=== PATIENT | female | born 1970 | race Caucasian/White ===

== ENCOUNTER 2017-01-07 09:57 | Inpatient (IN) | payer OTHER ==
[~2017-01-07] VITALS: Ht 149.9 cm; Wt 61.7 kg
[2017-01-07] VITALS (7 sets, daily range): BP systolic 109–120; BP diastolic 58–69
--- NOTE | 2017-01-07 11:11 | NUR ---
Patient ambulated to bed 04.
--- NOTE | 2017-01-07 11:15 | NUR ---
PATIENT PRESENTS TO ED WITH RECURRING PALPITATIONS X1 MONTH---WITH MINIMAL EXERTION PT BECOMES FATIGUED AT NIGHT CAN HEAR HEARBEAT RIGHT SIDE OF EAR--- HX---DENIES RX---NONE DENIES N/V/D; SKIN IS PINK/WARM/DRY; AAOX4 WITH EVEN AND STEADY GAIT; LUNGS CLEAR BL; HR EVEN AND REGULAR; PT DENIES ANY FEVER, CP, SOB, OR COUGH AT THIS TIME; PATIENT STATES PAIN OF 0/10 AT THIS TIME; VSS; PATIENT POSITIONED FOR COMFORT; HOB ELEVATED; BEDRAILS UP X2; BED DOWN. ER MD MADE AWARE OF PT STATUS.
--- NOTE | 2017-01-07 12:10 | NUR ---
AAO AMBULATES TO THE RESTROOM WITH DAUGHTER
--- NOTE | 2017-01-07 12:16 | NUR ---
1L OF NS 0.9% STARTED W/O 999ML/HR PER DR LACKEY Addendum: 01/07/17 at 1359 by VALORIE AT 1355 1L NS 0.9% DONE MEGA
[2017-01-07 12:23] LABS: INR 1.1 (0.8-1.2); PARTIAL THROMBOPLASTIN TIME 24.9 secs (22-35.6); PROTHROMBIN TIME 10.3 secs (10.8-13.4)
[2017-01-07 13:21] LABS: ANION GAP 13.9 (8-16); CALCIUM 8.4 mg/dL (8.5-10.1); CARBON DIOXIDE 25.8 mmol/L (21-32); CREATININE 0.6 mg/dL (0.6-1.3); POTASSIUM 3.7 mmol/L (3.5-5.1)
[2017-01-07 13:29] LABS: MEAN CORPUSCULAR HEMOGLOBIN 38 pg (27-31); MEAN CORPUSCULAR HGB CONC 34 g/dL (33-37); MEAN CORPUSCULAR VOLUME 111 fL (80-94); RED BLOOD CELL COUNT(AUTO) 1.04 MIL/uL (4.20-5.40); RED CELL DISTRIBUTION WIDTH 16.9 % (11.6-13.7)
--- NOTE | 2017-01-07 13:58 | NUR ---
AAO PT WHEEL CHAIR ASSISTED TO THE RESTROOM
[2017-01-07 14:01] LABS: TOTAL BILIRUBIN 0.4 mg/dL (0.0-1.0); TOTAL PROTEIN, SERUM 8.3 g/dL (6.4-8.2)
[2017-01-07 14:02] LABS: ALBUMIN 3.9 g/dL (3.4-5.0)
[2017-01-07] MEDS ORDERED: NACL 0.9% 1,000 ML IV ONE (14:30)
[2017-01-07 14:49] LABS: HEMATOCRIT 11.5 % (36-48); HEMOGLOBIN 3.9 g/dL (12.0-16.0); PLATELET COUNT (AUTO) 12 K/uL (140-450)
[2017-01-07 14:51] LABS: BAND % (MANUAL) 3 % (0-8); LYMPHOCYTES % (MANUAL) 50 % (20-46); MONOCYTES % (MANUAL) 7 % (5-12); NEUTROPHILS % (MANUAL) 40 (43-65)
[2017-01-07 14:52] LABS: PLATELET ESTIMATE DECREASED
--- NOTE | 2017-01-07 15:03 | NUR ---
Patient will be admitted to care of DR TERAN. Admited to TELE. Will go to room 105B. Belongings list completed. Report to ANA FANG.
[2017-01-07] MEDS ORDERED: ACETAMINOPHEN 325 MG TAB PO PRN (15:05)
[2017-01-07] MEDS ORDERED: ONDANSETRON 4 MG/2 ML VIAL IM/IVP PRN (15:05)
[2017-01-07] MEDS ORDERED: HYDROcodone/APAP 7.5/325 MG 1 TAB PO PRN (15:05)
[2017-01-07] MEDS: NACL 0.9% 1,000 ML IV SCH (15:05)
--- NOTE | 2017-01-07 15:24 | NUR ---
UNABLE TO DO IV INSERTION FOR 20G IV ATTEMPTED BY ANA PRATT
--- NOTE | 2017-01-07 15:30 | NUR ---
PT AWAKE LYING ON A BED ACCOMPANIED BY ER NURSES AND DAUGHTER AAOX4 CYMRAES SPEAKING WITH NO S/S OF RESPIRATORY DISTRESS OR DISCOMFORT, WITH IV ACCESS AT LEFT ARM 22G ON SALINE LOCK PATENT AND INTACT. SKIN IS INTACT. LUNG SOUNDS ARE CLEAR, NO EDEMA NOTED ON BILATERAL UPPER AND LOWER EXTREMITIES. DISCUSSED PLAN OF CARE VIA Kere[employer] DRIVER STARTING GATE ROSSY [id number], PT VERBALIZED UNDERSTANDING. ORIENTED PT TO ENVIRONMENT AND USE OF CALL LIGHT, SAFETY PRECAUTIONS ENFORCED. CALL LIGHT WITHIN REACH, WILL CONTINUE TO MONITOR
--- NOTE | 2017-01-07 15:30 | NUR ---
PT RECEIVED AWAKE LYING ON A BED
--- NOTE | 2017-01-07 15:35 | NUR ---
ANOTHER IV ACCESS STARTED ON RIGHT AC 20G FOR BLOOD TRANSFUSION. PATENT AND INTACT
--- NOTE | 2017-01-07 16:15 | NUR ---
DR RITCHIE AT BEDSIDE
[2017-01-07 16:29] LABS: CHOL/HDL RATIO 5.3 (1-4.5); FREE T4 (FREE THYROXINE) 1.33 ng/dL (0.76-1.46); MAGNESIUM 2.1 mg/dL (1.8-2.4); PHOSPHORUS 4.1 mg/dL (2.5-4.9); THYROID STIMULATING HORMONE 1.99 uIU/mL (0.34-3.76)
--- NOTE | 2017-01-07 16:30 | NUR ---
BLOOD TRANSFUSION STARTED VERIFIED BY ANA ORELLANA
--- NOTE | 2017-01-07 16:30 | NUR ---
DR RITCHIE NOTIFIED OF TEMP 99.7 PRIOR TO BT. WILL CARRY OUT NEW ORDERS
[2017-01-07 17:29] LABS: BILIRUBIN,URINE NEGATIVE (NEGATIVE); BLOOD, URINE NEGATIVE (NEGATIVE); LEUKOCYTE ESTERASE ,URINE NEGATIVE (NEGATIVE); NITRITE, URINE NEGATIVE (NEGATIVE); PH,URINE 6.5 (5.0-9.0); PROTEIN,URINE NEGATIVE (NEGATIVE); UGLUCOSE NEGATIVE (NEGATIVE); UROBILINOGEN,URINE 0.2 EU/dL (0.2 - 1)
[2017-01-07 17:46] LABS: APPEARANCE,URINE CLEAR (CLEAR); COLOR,URINE STRAW (YELLOW)
--- NOTE | 2017-01-07 18:21 | NUR ---
PT AWAKE EATING DINNER WITH GOOD APPETITE, WITH ONGOING BLOOD TRANSFUSION, NO ADVERSE REACTION NOTED. WITH DAUGHTER AT BEDSIDE.
[2017-01-07 18:35] LABS: AMPHETAMINE, URINE NEGATIVE ng/ml (NEG <=1000); BARBITURATE, URINE NEGATIVE ng/ml (NEG <=200); BENZODIAZEPINE, URINE NEGATIVE ng/mL (NEG <=200); CANNABINOID, URINE NEGATIVE ng/mL (NEG <=50); COCAINE, URINE NEGATIVE ng/mL (NEG <=300); OPIATE, URINE NEGATIVE ng/mL (NEG <=2000); PHENCYCLIDINE SCREEN,URINE NEGATIVE ng/mL (NEG <=25)
--- NOTE | 2017-01-07 19:10 | NUR ---
ENDORSED PT TO ANA VALDOVINOS IN STABLE CONDITION FOR CONTINUITY OF CARE
--- NOTE | 2017-01-07 19:16 | NUR ---
RECEIVED REPORT FROM ANA FANG AT BEDSIDE. INITIAL ASSESSMENT COMPLETED. PT AAOX4. PT RECEIVING BLOOD AT THIS TIME. PT HAS IV ON LEFT ARM G 22 AND RIGHT AC 20G INFUSING BLOOD. DAUGHTER AT BEDSIDE. PT HAS SCDS ON. ORIENTED PT TO ROOM AND SURROUNDINGS AND USE OF CALL LIGHT. ORIENTED PT TO ROOM AND SURROUNDINGS AND USE OF CALL LIGHT.
[2017-01-07] MEDS: ACETAMINOPHEN 325 MG TAB PO SCH (19:52)
[2017-01-07] MEDS: FUROSEMIDE 20 MG TAB PO SCH (19:53)
[2017-01-07 20:13] LABS: BACTERIA,URINE None Seen /HPF (None Seen); RBC,URINE NONE SEEN /HPF (0-5); SQUAMOUS EPITHELIAL CELL,UR RARE /LPF (0-3 (FEW)); WBC,URINE NONE SEEN /HPF (0-5)
[2017-01-07] MEDS: DOCUSATE SODIUM 100 MG GELCAP PO SCH (20:45)
--- NOTE | 2017-01-07 20:45 | NUR ---
PT TOLERATING PLASMA WELL. 2000 AND 2100 MEDS GIVEN. PT STABLE, VS STABLE. WILL CONTINUE TO MONITOR PT.
--- NOTE | 2017-01-07 21:05 | NUR ---
SECOND UNIT OF BLOOD STARTED. PT STABLE, WILL CONTINUE TO MONITOR PT.
--- NOTE | 2017-01-07 23:51 | NUR ---
PT TOLERATING BLOOD TRANSFUSION WELL. PT DENIES ANY DISTRESS OR DISCOMFORT. VS STABLE, WILL CONTINUE TO MONITOR PT.
[2017-01-08] VITALS: BP 101/56
[2017-01-08] MEDS: ACETAMINOPHEN 325 MG TAB PO SCH ×2 (00:40→05:01)
[2017-01-08] MEDS: FUROSEMIDE 20 MG TAB PO SCH ×3 (00:41→08:58)
--- NOTE | 2017-01-08 00:43 | NUR ---
SECOND UNIT OF BLOOD TRANSFUSED. PT IN STABLE CONDITION. PT STABLE. WILL CONTINUE TO MONITOR PT.
--- NOTE | 2017-01-08 01:25 | NUR ---
PT TOLERATING BLOOD TRANSFUSION WELL. WILL CONTINUE TO MONITOR PT.
--- NOTE | 2017-01-08 03:07 | NUR ---
PT SLEEPING AT THIS TIME. NO DISTRESS NOTED. WILL CONTINUE TO MONITOR PT.
[2017-01-08 04:00] VITALS: BP 105/69
--- NOTE | 2017-01-08 04:46 | NUR ---
PT TOLERATING BLOOD TRANSFUSION WELL. PT DENIES DISCOMFORT. WILL CONTINUE TO MONITOR PT.
--- NOTE | 2017-01-08 06:12 | NUR ---
PT TOLERATING BLOOD TRANSFUSION WELL. PT DENIES PAIN OR DISCOMFORT. WILL CONTINUE TO MONITOR PT.
--- NOTE | 2017-01-08 07:00 | NUR ---
DEGREASER OPERATOR AT BEDSIDE.
--- NOTE | 2017-01-08 07:20 | NUR ---
ENDORSED PLAN OF CARE TO DAY SHIFT NURSE. LAST UNIT OF BLOOD TRANSFUSION INFUSING AT THIS TIME. PT IN STABLE CONDITION.
--- NOTE | 2017-01-08 07:25 | NUR ---
RECEIVED REPORT FROM ANA VALDOVINOS. PT IS RESTING IN BED, A/OX4, AMBULATORY, PT HAS LT ARM IV, PT HAS LAST UNIT OF BLOOD INFUSING AT THIS TIME, NO S/S OF RESPIRATORY DISTRESS OR DISCOMFORT NOTED, SKIN IS INTACT, DISCUSSED PLAN OF CARE WITH PT, PT VERBALIZED UNDERSTANDING, CALL LIGHT IS WITHIN REACH, WILL CONTINUE TO MONITOR.
[2017-01-08 08:00] VITALS: BP 106/57
--- NOTE | 2017-01-08 08:20 | NUR ---
PATIENT'S BLOOD TRANSFUSION IS COMPLETED, NO S/S OF RESPIRATORY DISTRESS OR DISCOMFORT NOTED, CALL LIGHT IS WITHIN REACH, WILL CONTINUE TO MONITOR.
--- NOTE | 2017-01-08 08:25 | NUR ---
INFORMED DR. JOHNSON THE LAST BLOOD TRANSFUSION HAD BEEN COMPLETED.
[2017-01-08] MEDS: NACL 0.9% 1,000 ML IV SCH (08:43)
[2017-01-08] MEDS: DOCUSATE SODIUM 100 MG GELCAP PO SCH ×2 (08:58→20:42)
[2017-01-08] MEDS ORDERED: FERROUS SULFATE 325 MG TABEC PO SCH (09:01)
[2017-01-08 09:22] LABS: T4 (THYROXINE) 9.6 ug/dL (4.5-12.0)
[2017-01-08 09:40] LABS: MAGNESIUM 2.1 mg/dL (1.8-2.4); PHOSPHORUS 4.3 mg/dL (2.5-4.9)
[2017-01-08 09:45] LABS: WHITE BLOOD COUNT (AUTO) 3.3 K/uL (4.8-10.8)
[2017-01-08 09:46] LABS: HEMATOCRIT 30.4 % (36-48); MEAN CORPUSCULAR HEMOGLOBIN 31 pg (27-31); MEAN CORPUSCULAR HGB CONC 33 g/dL (33-37); MEAN CORPUSCULAR VOLUME 93 fL (80-94); RED BLOOD CELL COUNT(AUTO) 3.26 MIL/uL (4.20-5.40); RED CELL DISTRIBUTION WIDTH 19.9 % (11.6-13.7)
[2017-01-08] MEDS: ASCORBIC ACID 500 MG TAB PO SCH (09:47)
[2017-01-08 09:48] LABS: PLATELET COUNT (AUTO) 18 K/uL (140-450)
[2017-01-08 09:51] LABS: ANION GAP 14.2 (8-16); CALCIUM 8.8 mg/dL (8.5-10.1); CREATININE 0.8 mg/dL (0.6-1.3); POTASSIUM 4.2 mmol/L (3.5-5.1)
[2017-01-08 09:55] LABS: BAND % (MANUAL) 8 % (0-8); LYMPHOCYTES % (MANUAL) 50 % (20-46); MONOCYTES % (MANUAL) 7 % (5-12); NEUTROPHILS % (MANUAL) 35 (43-65)
--- NOTE | 2017-01-08 10:30 | NUR ---
PT IS RESTING IN BED WATCHING TV, FAMILY IS AT BEDSIDE.
--- NOTE | 2017-01-08 11:17 | NUR ---
PATIENT HAS BEEN SCREENED AND CATEGORIZED LOW NUTRITION RISK. PATIENT WILL BE SEEN WITHIN 7 DAYS OF ADMISSION. 01/14/17 OLE FRANCIS MBA, RD
[2017-01-08 12:00] VITALS: BP 113/65
--- NOTE | 2017-01-08 12:30 | NUR ---
ASSISTED PT WITH GETTING OUT OF BED TO WALK TO THE RESTROOM AND BACK INTO BED, DAUGHTER IS AT BEDSIDE.
--- NOTE | 2017-01-08 14:50 | NUR ---
PT IS RESTING IN BED, WATCHING TV, FAMILY IS AT BEDSIDE, CALL LIGHT WITHIN REACH.
[2017-01-08 15:07] LABS: ANION GAP 15.1 (8-16); CALCIUM 8.6 mg/dL (8.5-10.1); CARBON DIOXIDE 27.4 mmol/L (21-32); CREATININE 0.9 mg/dL (0.6-1.3); POTASSIUM 3.5 mmol/L (3.5-5.1)
[2017-01-08 15:12] LABS: PHOSPHORUS 4.7 mg/dL (2.5-4.9)
[2017-01-08 16:00] VITALS: BP 109/70
[2017-01-08] MEDS: FERROUS SULFATE 325 MG TABEC PO SCH (16:14)
--- NOTE | 2017-01-08 17:00 | NUR ---
PT SITTING IN BED WATCHING TV, FAMILY IS AT BEDSIDE.
--- NOTE | 2017-01-08 19:30 | NUR ---
RECEIVED REPORT FROM DAY RN AT BEDSIDE, PATIENT RESTING IN BED WITH FAMILY AT BEDSIDE, AAOX4 ON ROOM AIR, NO SOB OR SIGN OF DISTRESS, IV LFA PATENT AND INTACT, SKIN INTACT, PT DENIES PAIN AT THIS TIME, DISCUSSED PLAN OF CARE WITH PATIENT, PATIENT VERBALIZED UNDERSTANDING, SAFETY MEASURES CHECKED, CALL LIGHT WITHIN REACH. WILL CONTINUE TO MONITOR.
--- NOTE | 2017-01-08 19:30 | NUR ---
ENDORSED PT TO ANA VAZQUEZ. FOR CONTINUITY OF CARE, PT STABLE AT THIS TIME, DAUGHTER IS AT BEDSIDE.
[2017-01-08 20:00] VITALS: BP 104/49
--- NOTE | 2017-01-08 20:45 | NUR ---
PM MEDS ADMINISTERED, PATIENT TOLERATED WELL, CALL LIGHT WITHIN REACH, WILL CONTINUE TO MONITOR
--- NOTE | 2017-01-08 22:30 | NUR ---
PATIENT SLEEPING, NO SIGN OF DISTRESS, CALL LIGHT WITHIN REACH. WILL CONTINUE TO MONITOR.
[2017-01-09] VITALS: BP 93/45
--- NOTE | 2017-01-09 00:10 | NUR ---
VITAL SIGNS STABLE, NO SOB OR SIGN OF DISTRESS, CALL LIGHT WITHIN REACH. WILL CONTINUE TO MONITOR.
[2017-01-09] MEDS: NACL 0.9% 1,000 ML IV SCH ×3 (00:30→22:44)
--- NOTE | 2017-01-09 02:30 | NUR ---
PATIENT SLEEPING, NO SIGN OF DISTRESS, CALL LIGHT WITHIN REACH, WILL CONTINUE TO MONITOR.
[2017-01-09 04:00] VITALS: BP 98/51
--- NOTE | 2017-01-09 04:25 | NUR ---
VITAL SIGNS STABLE , NO SOB OR SIGN OF DISTRESS, PATIENT SLEEPING, CALL LIGHT WITHIN REACH. WILL CONTINUE TO MONITOR.
[2017-01-09 07:04] LABS: WHITE BLOOD COUNT (AUTO) 3.3 K/uL (4.8-10.8)
[2017-01-09 07:09] LABS: ANION GAP 14.4 (8-16); CALCIUM 8.3 mg/dL (8.5-10.1); CARBON DIOXIDE 25.5 mmol/L (21-32); CREATININE 0.8 mg/dL (0.6-1.3); POTASSIUM 3.9 mmol/L (3.5-5.1)
[2017-01-09 07:12] LABS: HEMATOCRIT 29.5 % (36-48); HEMOGLOBIN 9.7 g/dL (12.0-16.0); MEAN CORPUSCULAR HEMOGLOBIN 31 pg (27-31); MEAN CORPUSCULAR HGB CONC 33 g/dL (33-37); MEAN CORPUSCULAR VOLUME 93 fL (80-94); RED BLOOD CELL COUNT(AUTO) 3.18 MIL/uL (4.20-5.40); RED CELL DISTRIBUTION WIDTH 19.7 % (11.6-13.7)
[2017-01-09 07:13] LABS: MAGNESIUM 2.1 mg/dL (1.8-2.4); PHOSPHORUS 4.5 mg/dL (2.5-4.9)
--- NOTE | 2017-01-09 07:30 | NUR ---
ENDORSED PATIENT TO DAY RN AT BEDSIDE, PATIENT IN STABLE CONDITION
--- NOTE | 2017-01-09 07:31 | NUR ---
PT ALERT AND ORIENTED X4, HUNGARIAN SPEAKING. BREATHING EVENLY AND UNLABORED. NO SIGNS OF ACUTE DISTRESS. SKIN IS WARM AND DRY. NO SIGNS OF ANY BOWEL/BLADDER DISCOMFORT. DENIES OF ANY PAIN OR DISCOMFORT. ALL NEEDS ATTENDED, SAFETY PRECAUTIONS MAINTAINED. CALL LIGHT WITHIN REACH.
[2017-01-09 07:58] VITALS: BP 111/70
[2017-01-09 08:01] LABS: PLATELET COUNT (AUTO) 14 K/uL (140-450)
[2017-01-09 08:04] LABS: BAND % (MANUAL) 5 % (0-8); MONOCYTES % (MANUAL) 13 % (5-12); NEUTROPHILS % (MANUAL) 27 (43-65)
[2017-01-09 08:05] LABS: LYMPHOCYTES % (MANUAL) 55 % (20-46)
--- NOTE | 2017-01-09 08:13 | NUR ---
RECEIVED NEW ORDER FROM DR. JOHNSON, TRANSFUSE 1 UNIT OF PLATELET. NOTED AND CARRIED OUT.
[2017-01-09] MEDS: DOCUSATE SODIUM 100 MG GELCAP PO SCH ×2 (08:15→20:19)
[2017-01-09] MEDS: FERROUS SULFATE 325 MG TABEC PO SCH ×2 (08:16→16:01)
[2017-01-09] MEDS: FUROSEMIDE 40 MG/4 ML VIAL IVP SCH (08:16)
[2017-01-09] MEDS: ASCORBIC ACID 500 MG TAB PO SCH (08:16)
--- NOTE | 2017-01-09 11:30 | NUR ---
OBTAINED 1 UNIT OF PLATELET, TO BE ADMINISTERED ORDERED, VERIFIED WITH ANA GARCIA AT BEDSIDE.
--- NOTE | 2017-01-09 11:40 | NUR ---
PT STARTED ON BLOOD TRANSFUSION OF 1 UNIT OF PLATELETS. PT ALERT AND RESPONSIVE, NO SIGNS OF ACUTE DISTRESS NOTED. CONTINUE TO MONITOR.
--- NOTE | 2017-01-09 11:55 | NUR ---
PT TOLERATING BLOOD TRANSFUSION WELL. NO ADVERSE EFFECTS NOTED. NO SIGNS OF ACUTE DISTRESS. CONTINUE TO MONITOR.
[2017-01-09 12:00] VITALS: BP 110/54
--- NOTE | 2017-01-09 12:10 | NUR ---
PT FINISHED AND TOLERATED 1 UNIT OF PLATELET. NO ADVERSE REACTIONS NOTED. PT IS ALERT AND RESPONSIVE, NO ACUTE DISTRESS. CONTINUE TO MONITOR.
--- NOTE | 2017-01-09 12:41 | NUR ---
CM NOTE INITIAL REVIEW SENT TO [facility] FAX# [phone] [place] PH# [phone]
[2017-01-09 15:24] LABS: TRANSFERRIN 294 mg/dL (200-370)
--- NOTE | 2017-01-09 15:44 | NUR ---
NEW LAB ORDERS RECEIVED FROM DR. JOHNSON, NOTED AND CARRIED OUT.
[2017-01-09 16:00] VITALS: BP 123/74
[2017-01-09 16:42] LABS: BASOPHILS # (AUTO) 0.1 K/uL (0.00-0.22); BASOPHILS % (AUTO) 1.7 % (0.0-2.0); EOSINOPHILS % (AUTO) 0.9 % (0.0-4.0); HEMATOCRIT 30.8 % (36-48); HEMOGLOBIN 10.1 g/dL (12.0-16.0); LYMPHOCYTES # (AUTO) 1.2 K/uL (2.5-16.5); LYMPHOCYTES % (AUTO) 38.1 % (20.5-51.1); MEAN CORPUSCULAR HEMOGLOBIN 31 pg (27-31); MEAN CORPUSCULAR HGB CONC 33 g/dL (33-37); MEAN CORPUSCULAR VOLUME 94 fL (80-94); MONOCYTES # (AUTO) 0.2 K/uL (0.8-1.0); MONOCYTES % (AUTO) 6.7 % (1.7-9.3); NEUTROPHILS # (AUTO) 1.8 K/uL (1.8-7.7); NEUTROPHILS % (AUTO) 52.6 % (42.2-75.2); PLATELET COUNT (AUTO) 52 K/uL (140-450); RED BLOOD CELL COUNT(AUTO) 3.28 MIL/uL (4.20-5.40); WHITE BLOOD COUNT (AUTO) 3.3 K/uL (4.8-10.8)
--- NOTE | 2017-01-09 19:02 | NUR ---
PT ALERT AND RESPONSIVE, NO SIGNS OF ACUTE DISTRESS. ENDORSED TO ONCOMING AVIATION MANAGER NURSE FOR CONTINUITY OF CARE.
--- NOTE | 2017-01-09 19:10 | NUR ---
RECEIVED REPORT FROM ANA VELEZ AT BEDSIDE. INITIAL ASSESSMENT COMPLETED. PT AAOX4. PT'S FAMILY AT BEDSIDE. PT HAS IV ON LEFT FOREARM G 22; ASYMPTOMATIC, PATENT AND INTACT INFUSING FLUIDS WELL. PT HAS SCDS ON. PT HAS A BRUISE ON RIGHT AC DUE TO PREVIOUS IV. ORIENTED PT TO ROOM AND SURROUNDINGS AND USE OF CALL LIGHT. EXPLAINED PLAN OF CARE TO PT AND SHE VERBALIZES UNDERSTANDING. SAFETY MEASURES IN PLACE, WILL CONTINUE TO MONITOR PT. CALL LIGHT WITHIN REACH.
[2017-01-09 20:00] VITALS: BP 102/66
--- NOTE | 2017-01-09 20:22 | NUR ---
PT TOLERATED 2100 MED WELL. CALL LIGHT WITHIN REACH.
--- NOTE | 2017-01-09 22:35 | NUR ---
PT USING HER CELL PHONE, PT STABLE. CALL LIGHT WITHIN REACH.
[2017-01-10] VITALS: BP 110/65
--- NOTE | 2017-01-10 01:15 | NUR ---
PT AMBULATED TO THE RESTROOM WITH STEADY GAIT, PT BACK IN BED NOW. CALL LIGHT WITHIN REACH.
--- NOTE | 2017-01-10 03:22 | NUR ---
IV PUMP ALARMING; FLUSHED AND INFUSING FLUIDS WELL. WILL CONTINUE TO MONITOR PT.
[2017-01-10 04:00] VITALS: BP 115/71
--- NOTE | 2017-01-10 04:50 | NUR ---
PT REQUESTING A SNACK. PROVIDED PT WITH CRACKERS AND JUICE. CALL LIGHT WITHIN REACH.
[2017-01-10 06:13] LABS: BASOPHILS % (AUTO) 1.2 % (0.0-2.0); EOSINOPHILS % (AUTO) 0.8 % (0.0-4.0); HEMATOCRIT 28.4 % (36-48); HEMOGLOBIN 9.5 g/dL (12.0-16.0); LYMPHOCYTES % (AUTO) 65.1 % (20.5-51.1); MEAN CORPUSCULAR HEMOGLOBIN 31 pg (27-31); MEAN CORPUSCULAR HGB CONC 33 g/dL (33-37); MEAN CORPUSCULAR VOLUME 92 fL (80-94); MONOCYTES # (AUTO) 0.2 K/uL (0.8-1.0); MONOCYTES % (AUTO) 6.4 % (1.7-9.3); NEUTROPHILS # (AUTO) 0.8 K/uL (1.8-7.7); NEUTROPHILS % (AUTO) 26.5 % (42.2-75.2); PLATELET COUNT (AUTO) 26 K/uL (140-450); RED CELL DISTRIBUTION WIDTH 18.8 % (11.6-13.7)
[2017-01-10 06:23] LABS: FOLIC ACID > 20.00 ng/mL (>3.0)
[2017-01-10 06:52] LABS: ANION GAP 14.6 (8-16); CALCIUM 8.5 mg/dL (8.5-10.1); CREATININE 0.7 mg/dL (0.6-1.3); POTASSIUM 3.6 mmol/L (3.5-5.1)
[2017-01-10 06:59] LABS: MAGNESIUM 2.1 mg/dL (1.8-2.4); PHOSPHORUS 4.6 mg/dL (2.5-4.9)
--- NOTE | 2017-01-10 07:15 | NUR ---
ENDORSED PLAN OF CARE TO DAY SHIFT NURSE. PT IN STABLE CONDITION.
--- NOTE | 2017-01-10 07:20 | NUR ---
RECEIVED REPORT FROM ANA VALDOVINOS. PT IS RESTING IN BED, A/OX4, AMBULATORY, PT HAS LT ARM IV, PATENT, INTACT, FLUSHING WELL, NO S/S OF RESPIRATORY DISTRESS OR DISCOMFORT NOTED, SKIN IS INTACT, SAFETY/FALL PRECAUTIONS ARE IN PLACE, DISCUSSED PLAN OF CARE WITH PT, PT VERBALIZED UNDERSTANDING, CALL LIGHT IS WITHIN REACH, WILL CONTINUE TO MONITOR.
[2017-01-10 08:00] VITALS: BP 108/73
[2017-01-10] MEDS: FERROUS SULFATE 325 MG TABEC PO SCH (08:14)
[2017-01-10] MEDS: DOCUSATE SODIUM 100 MG GELCAP PO SCH (08:14)
[2017-01-10] MEDS: ASCORBIC ACID 500 MG TAB PO SCH (08:14)
--- NOTE | 2017-01-10 08:14 | NUR ---
DUE MEDICATIONS GIVEN, PT TOLERATED WELL, CALL LIGHT WITHIN REACH, WILL CONTINUE TO MONITOR.
[2017-01-10] MEDS: FUROSEMIDE 40 MG/4 ML VIAL IVP SCH (08:15)
[2017-01-10 09:58] LABS: FERRITIN 326 ng/mL (15-150)
--- NOTE | 2017-01-10 10:16 | NUR ---
PT RESTING IN BED, DAUGHTER IS AT BEDSIDE, CALL LIGHT WITHIN REACH.
[2017-01-10] MEDS ORDERED: FERR-18 PO (11:43)
[2017-01-10] MEDS ORDERED: DOCU-67 PO (11:43)
[2017-01-10] MEDS ORDERED: ASCO-166 PO (11:43)
[2017-01-10 12:00] VITALS: BP 112/72
--- NOTE | 2017-01-10 12:04 | NUR ---
PT SITTING UP IN BED EATING LUNCH, DAUGHTER IS AT BEDSIDE.
--- NOTE | 2017-01-10 13:00 | NUR ---
DISCHARGE INSTRUCTIONS GIVEN, INSTRUCTIONS WERE GIVEN TO PT TO FOLLOW UP WITH HER PCP WITHIN 3 DAYS OF DISCHARGE, ID WRIST REMOVED, IV REMOVED, CATHETER TIP INTACT, PT STABLE UPON DISCHARGE, ACCOMPANIED BY HER DAUGHTER.
--- NOTE | 2017-01-10 13:23 | NUR ---
CM NOTE CONCURRENT REVIEW SENT TO [facility] FAX# [phone] [place] # [phone]
== END 2017-01-10 13:20 | disposition home or self-care (01) | DRG 808 ==
LOC: MED 09:57 → MTU 15:26
PROVIDERS: ADMIT Family Medicine; ATTEND Family Medicine
PROC: 30233K1 Transfusion of Nonautologous Frozen Plasma into Peripheral Vein, Percutaneous Approach (ICD-10-PCS; principal; 2017-01-07)
PROC: 30233N1 Transfusion of Nonautologous Red Blood Cells into Peripheral Vein, Percutaneous Approach (ICD-10-PCS; 2017-01-07)
PROC: 30233L1 Transfusion of Nonautologous Fresh Plasma into Peripheral Vein, Percutaneous Approach (ICD-10-PCS; 2017-01-07)
PROC: 30233R1 Transfusion of Nonautologous Platelets into Peripheral Vein, Percutaneous Approach (ICD-10-PCS; 2017-01-09)
DX: D61.818 Other pancytopenia (principal); N17.0 Acute kidney failure with tubular necrosis; K76.0 Fatty (change of) liver, not elsewhere classified; E83.51 Hypocalcemia; Z56.0 Unemployment, unspecified
CPT/HCPCS: 36415; 71010; 76700; 80048; 80053; 80305; 81001; 81025; 82150; 82272; 82553; 82607; 82728; 82746; 83036; 83540; 83690; 83735; 83880; 84100; 84436; 84439; 84443; 84479; 84484; 85025; 85045; 85610; 85730; 86886; 86900; 86901; 86920; 87081; 93005; 96360; 99285; J1940; J7030; P9016; P9017; P9035; Q0092; Q0163

== ENCOUNTER 2017-01-27 14:50 | Emergency (ER) | payer OTHER ==
[~2017-01-27] VITALS: Ht 152.4 cm; Wt 68.0 kg
[~2017-01-27 14:50] MED LIST: ASCO-166 PO; DOCU-67 PO; FERR-18 PO
--- NOTE | 2017-01-27 14:56 | NUR ---
PATIENT PRESENTS TO ED WITH C/O BLEEDING GUMS. M.D. IN TRIAGE TO EVALUATE PT, NO ACTIVE BLEEDING NOTED . PT STATES SHE NOTICED THE BLEEDING THIS AM . DENIES N/V/D; SKIN IS PINK/WARM/DRY; AAOX4 WITH EVEN AND STEADY GAIT; LUNGS CLEAR BL; HR EVEN AND REGULAR; PT DENIES ANY FEVER, CP, SOB, OR COUGH AT THIS TIME; PATIENT STATES PAIN OF 0/10 AT THIS TIME; VSS.
--- NOTE | 2017-01-27 15:05 | NUR ---
Renee EVALUATED PT IN TRIAGE. PT ELOPED AFTER EVALUATION BY Renee
[2017-01-27 15:09] VITALS: BP 127/79
[2017-01-27 15:15] VITALS: BP 127/79
[2017-02-09] MEDS ORDERED: FERR-18 PO (13:43)
== END 2017-01-27 15:05 | disposition left against medical advice (07) ==
LOC: MED 14:50
DX: K06.8 Other specified disorders of gingiva and edentulous alveolar ridge (principal); Z53.21 Procedure and treatment not carried out due to patient leaving prior to being seen by health care provider
CPT/HCPCS: 99281

== ENCOUNTER 2017-03-31 22:26 | Inpatient (IN) | payer OTHER ==
[~2017-03-31] VITALS: Ht 147.3 cm; Wt 61.2 kg
[2017-03-31 22:30] VITALS: BP 110/66
--- NOTE | 2017-03-31 22:36 | NUR ---
To Bed 4.
--- NOTE | 2017-03-31 23:00 | NUR ---
Patient being evaluated by physician at bedside.
--- NOTE | 2017-03-31 23:07 | NUR ---
46Y/F PT. PRESENTS TO ED WITH C/O CHEST PAIN X 1 DAY. PT. STATES PAIN STARTED YESTERDAY, NO FEVER, NO N/V/D. HX ANEMIA. AAO X4, AMBULATORY WITH STEADY GAIT. RESPRIATIONS ROOM AIR, EVEN AND UNLABORED. BL LUNGS CLEAR. SKIN WARM AND DRY. C/O CP 01/20. VSS, ER MD MADE AWARE OF PT. STATUS.
[2017-03-31 23:30] LABS: RED CELL DISTRIBUTION WIDTH 16.1 % (11.6-13.7)
[2017-03-31 23:32] LABS: MEAN CORPUSCULAR HEMOGLOBIN 31 pg (27-31); MEAN CORPUSCULAR HGB CONC 36 g/dL (33-37); MEAN CORPUSCULAR VOLUME 88 fL (80-94); WHITE BLOOD COUNT (AUTO) 3.8 K/uL (4.8-10.8)
[2017-03-31 23:33] LABS: ANION GAP 12.1 (8-16); CARBON DIOXIDE 25.2 mmol/L (21-32); CREATININE 0.8 mg/dL (0.6-1.3); POTASSIUM 3.3 mmol/L (3.5-5.1)
[2017-03-31 23:39] LABS: TOTAL BILIRUBIN 0.3 mg/dL (0.0-1.0)
[2017-03-31 23:41] LABS: HEMATOCRIT 13.3 % (36-48); HEMOGLOBIN 4.7 g/dL (12.0-16.0); PLATELET COUNT (AUTO) 4 K/uL (140-450)
[2017-03-31 23:42] LABS: EOSINOPHILS % (MANUAL) 1 % (0-4); LYMPHOCYTES % (MANUAL) 90 % (20-46); MONOCYTES % (MANUAL) 1 % (5-12)
[2017-03-31 23:47] LABS: PROTHROMBIN TIME 10.2 secs (10.8-13.4)
[2017-03-31] MEDS ORDERED: NACL 0.9% 1,000 ML IV SCH (23:51)
[2017-03-31] MEDS ORDERED: ACETAMINOPHEN 325 MG TAB PO PRN (23:55)
[2017-03-31] MEDS ORDERED: MORPHINE SULFATE 2 MG/ML SYR IVP PRN (23:55)
[2017-03-31] MEDS ORDERED: ONDANSETRON 4 MG/2 ML VIAL IM/IVP PRN (23:55)
[2017-03-31] MEDS ORDERED: HYDROcodone/APAP 7.5/325 MG 1 TAB PO PRN (23:55)
[2017-03-31] MEDS ORDERED: DOCUSATE SODIUM 100 MG GELCAP PO PRN (23:55)
[2017-04-01 00:20] VITALS: BP 115/65
--- NOTE | 2017-04-01 00:20 | NUR ---
PATIENT ADMITTED TO THE UNIT FROM ER. PATIENT IS ALERT, AWAKE, AND ORIENTED. PATIENT IS AMBULATORY. NO SIGNS AND SYMPTOMS OF DISTRESS NOTED. NO COMPLAINTS OF PAIN AT THIS TIME. IV SITE NOTED AT LEFT AC. SKIN IS INTACT. WILL CONTINUE TO MONITOR.
--- NOTE | 2017-04-01 00:30 | NUR ---
Patient will be admitted to care of DR. HUYNH. Admited to TELEMETRY. Will go to room 108 B. Belongings list completed. Report to ANA UREÑA.
[2017-04-01 00:41] LABS: CHOL/HDL RATIO 4.7 (1-4.5); MAGNESIUM 1.9 mg/dL (1.8-2.4); PHOSPHORUS 4.1 mg/dL (2.5-4.9); THYROID STIMULATING HORMONE 2.5 uIU/mL (0.34-3.74)
[2017-04-01 00:45] LABS: APPEARANCE,URINE HAZY (CLEAR); BILIRUBIN,URINE NEGATIVE (NEGATIVE); BLOOD, URINE 2+ (NEGATIVE); COLOR,URINE YELLOW (YELLOW); LEUKOCYTE ESTERASE ,URINE NEGATIVE (NEGATIVE); NITRITE, URINE NEGATIVE (NEGATIVE); UGLUCOSE NEGATIVE (NEGATIVE)
[2017-04-01 00:54] LABS: BARBITURATE, URINE NEG. ng/ml (NEG <=200); BENZODIAZEPINE, URINE NEG. ng/mL (NEG <=200); CANNABINOID, URINE NEG. ng/mL (NEG <=50); COCAINE, URINE NEG. ng/mL (NEG <=300); OPIATE, URINE NEG. ng/mL (NEG <=2000); PHENCYCLIDINE SCREEN,URINE NEG. ng/mL (NEG <=25)
[2017-04-01 00:56] LABS: RBC,URINE 0-5 (RARE) /HPF (0-5)
--- NOTE | 2017-04-01 01:47 | NUR ---
BLOOD TRANSFUSION INITIATED. WILL CONTINUE TO MONITOR.
[2017-04-01] MEDS ORDERED: POTASSIUM CHLORIDE 10 MEQ TABER PO SCH (02:00)
--- NOTE | 2017-04-01 02:02 | NUR ---
BLOOD TRANSFUSION IN PROGRESS. PATIENT RESTING IN A COMFORTABLE POSITION. NO SIGNS AND SYMPTOMS OF DISTRESS NOTED AT THIS TIME. VITAL SIGNS WITHIN NORMAL LIMITS. WILL CONTINUE TO MONITOR
--- NOTE | 2017-04-01 03:17 | NUR ---
BLOOD TRANSFUSION IN PROGRESS. PATIENT RESTING COMFORTABLY IN BED. NO SIGNS AND SYMPTOMS OF DISTRESS NOTED. VITAL SIGNS WITHIN NORMAL LIMITS. WILL CONTINUE TO MONITOR.
[2017-04-01 04:00] VITALS: BP 113/63
--- NOTE | 2017-04-01 04:45 | NUR ---
1UNIT OF PRBC TRANSFUSION DONE. NO S/S OF DISTRESS NOTED. VSS STABLE. PER DR MCMULLEN BEGIN TRANSFUSING FRESH FROZEN PLASMA
--- NOTE | 2017-04-01 05:45 | NUR ---
FFP TRANSFUSION INITIATED
--- NOTE | 2017-04-01 06:10 | NUR ---
FFP TRANSFUSION DONE. PATIENT TOLERATED WELL. NO ADVERSE REACTIONS NOTED. VSS WITHIN NORMAL LIMITS
[2017-04-01] MEDS: NACL 0.9% 1,000 ML IV SCH ×3 (06:20→23:04)
--- NOTE | 2017-04-01 07:24 | NUR ---
PATIENT REPORT GIVEN TO MORNING NURSE. PATIENT IS ASLEEP AND IN STABLE CONDITION. NO SIGNS AND SYMPTOMS OF DISTRESS NOTED.
--- NOTE | 2017-04-01 07:35 | NUR ---
RECEIVED REPORT FROM STAFFING CLERK NURSE PT IS RESTING IN BED, A/OX4, AMBULATORY, SKIN IS INTACT, IV ON THE LT AC, PATENT, INTACT, FLUSHING WELL, NO S/S OF RESPIRATORY DISTRESS OR DISCOMFORT NOTED, DISCUSSED PLAN OF CARE WITH PT, PT VERBALIZED UNDERSTANDING, CALL LIGHT IS WITHIN REACH, WILL CONTINUE TO MONITOR.
[2017-04-01 08:00] VITALS: BP 96/54
[2017-04-01] MEDS: PANTOPRAZOLE 40 MG TABEC PO SCH (08:49)
[2017-04-01] MEDS: ATORVASTATIN 20 MG TAB PO SCH (08:50)
[2017-04-01] MEDS: ASCORBIC ACID 500 MG TAB PO SCH (08:50)
[2017-04-01] MEDS: FERROUS SULFATE 325 MG TABEC PO SCH ×2 (08:50→17:00)
[2017-04-01 09:24] LABS: MEAN CORPUSCULAR HEMOGLOBIN 30 pg (27-31); MEAN CORPUSCULAR HGB CONC 35 g/dL (33-37); MEAN CORPUSCULAR VOLUME 86 fL (80-94); RED BLOOD CELL COUNT(AUTO) 1.83 MIL/uL (4.20-5.40); RED CELL DISTRIBUTION WIDTH 14.4 % (11.6-13.7); WHITE BLOOD COUNT (AUTO) 2.8 K/uL (4.8-10.8)
[2017-04-01 09:30] LABS: HEMATOCRIT 15.7 % (36-48); HEMOGLOBIN 5.5 g/dL (12.0-16.0); PLATELET COUNT (AUTO) 5 K/uL (140-450)
[2017-04-01 09:33] LABS: ANION GAP 11.2 (8-16); CREATININE 0.6 mg/dL (0.6-1.3); POTASSIUM 4.2 mmol/L (3.5-5.1)
[2017-04-01 09:34] LABS: MAGNESIUM 1.9 mg/dL (1.8-2.4); PHOSPHORUS 3.7 mg/dL (2.5-4.9)
[2017-04-01 09:48] LABS: BASOPHILS % (MANUAL) 0 % (0-2); EOSINOPHILS % (MANUAL) 0 % (0-4); LYMPHOCYTES % (MANUAL) 88 % (20-46); MONOCYTES % (MANUAL) 2 % (5-12)
[2017-04-01 12:00] VITALS: BP 110/66
[2017-04-01 16:00] VITALS: BP 116/74
--- NOTE | 2017-04-01 19:20 | NUR ---
ENDORSED PT TO FACILITY EXAMINER NURSE FOR CONTINUITY OF CARE, PT STABLE AT THIS TIME.
--- NOTE | 2017-04-01 19:22 | NUR ---
RECEIVED PT FROM MARY RN PT BELIZEAN SPEAKER AAOX4 AMBULATORY WITH DX OF CHRONIC ANEMIA DENIAL ANY DISCOMFORT, NOT PAIN IV ON LEFT AC INFUSING WELL INITIAL ASSESSMENT DONE
[2017-04-01 20:00] VITALS: BP 111/61
--- NOTE | 2017-04-01 22:00 | NUR ---
PTAMBULATES TO THE RESTROOM VOIDING WELL ON TEL SR
--- NOTE | 2017-04-01 23:08 | NUR ---
LB IS HERE DRAWING BLOOD PENDING RESULT
[2017-04-01 23:22] LABS: BASOPHILS % (AUTO) 2.7 % (0.0-2.0); EOSINOPHILS % (AUTO) 0.3 % (0.0-4.0); LYMPHOCYTES # (AUTO) 1.4 K/uL (2.5-16.5); MEAN CORPUSCULAR HEMOGLOBIN 30 pg (27-31); MEAN CORPUSCULAR HGB CONC 34 g/dL (33-37); MEAN CORPUSCULAR VOLUME 87 fL (80-94); MONOCYTES % (AUTO) 2.8 % (1.7-9.3); NEUTROPHILS # (AUTO) 0.2 K/uL (1.8-7.7); NEUTROPHILS % (AUTO) 14.7 % (42.2-75.2); RED BLOOD CELL COUNT(AUTO) 2.09 MIL/uL (4.20-5.40); RED CELL DISTRIBUTION WIDTH 13.3 % (11.6-13.7)
[2017-04-02] VITALS: BP 98/49
[2017-04-02] LABS: WHITE BLOOD COUNT (AUTO) 1.6 K/uL (4.8-10.8)
--- NOTE | 2017-04-02 | NUR ---
LAB CALLED FOR CRITICAL LAB RESULT AND DR GUTHRIE NOTIFY AND PLATELES WILL BE GIVEN SOON ARE READY FROM LAB
[2017-04-02 00:01] LABS: HEMATOCRIT 18.1 % (36-48); HEMOGLOBIN 6.2 g/dL (12.0-16.0)
[2017-04-02 00:02] LABS: LYMPHOCYTES % (AUTO) 79.5 % (20.5-51.1); PLATELET COUNT (AUTO) 5 K/uL (140-450)
--- NOTE | 2017-04-02 00:21 | NUR ---
RODNEY FROM LAB CALLED TO INFORM THAT PLATELET ARE NOT READY AND SHE WILL CALL WHEN PLATELET BE READY
--- NOTE | 2017-04-02 03:00 | NUR ---
PT AMBULATES TO THE RESTROOM VOIDING WELL ON TELEMETRY SR PT DOES NOT COMPLAINT OF ANY DISCOMFORT AT THIS TIME
[2017-04-02 04:00] VITALS: BP 101/63
[2017-04-02] MEDS ORDERED: predniSONE 20 MG TAB PO SCH (05:00)
--- NOTE | 2017-04-02 05:15 | NUR ---
STARTED TO TRANSFUSE PLASMA ORDER
--- NOTE | 2017-04-02 06:00 | NUR ---
END PLASMA TRANSFUSION NOT DISTRESS NOTED WILL BE MONITORING LAB
--- NOTE | 2017-04-02 07:00 | NUR ---
PT IS ENDORSED TO MARY FOR CONTINUITY OF CARE
--- NOTE | 2017-04-02 07:05 | NUR ---
RECEIVED REPORT FROM PROFESSIONAL WRESTLER NURSE PT IS SLEEPING IN BED, BUT EASILY AWAKEN, A/OX4, AMBULATORY, SKIN IS INTACT, IV ON THE LT AC, PATENT, INTACT, FLUSHING WELL, NO S/S OF RESPIRATORY DISTRESS OR DISCOMFORT NOTED, DISCUSSED PLAN OF CARE WITH PT, PT VERBALIZED UNDERSTANDING, CALL LIGHT IS WITHIN REACH, WILL CONTINUE TO MONITOR.
[2017-04-02] MEDS: NACL 0.9% 1,000 ML IV SCH ×2 (07:09→17:37)
--- NOTE | 2017-04-02 07:25 | NUR ---
ENDORSED PT TO SENIOR WINDOWS ADMINISTRATOR NURSE FOR CONTINUITY OF CARE, PT STABLE AT THIS TIME. Addendum: 04/02/17 at 2005 by Lashawn Pandey RN WRONG TIME ENTRY.
[2017-04-02 08:00] VITALS: BP 103/54
[2017-04-02] MEDS: FERROUS SULFATE 325 MG TABEC PO SCH ×2 (08:27→17:38)
[2017-04-02] MEDS: PANTOPRAZOLE 40 MG TABEC PO SCH (08:27)
[2017-04-02] MEDS: ASCORBIC ACID 500 MG TAB PO SCH (08:27)
[2017-04-02] MEDS: ATORVASTATIN 20 MG TAB PO SCH (08:27)
--- NOTE | 2017-04-02 08:27 | NUR ---
DUE MEDICATIONS GIVEN, PT TOLERATED WELL, CALL LIGHT WITHIN REACH.
--- NOTE | 2017-04-02 09:00 | NUR ---
PATIENT HAS BEEN SCREENED AND CATEGORIZED LOW NUTRITION RISK. PATIENT WILL BE SEEN WITHIN 7 DAYS OF ADMISSION. 04/07/[address]
[2017-04-02 09:07] LABS: TRANSFERRIN 240 mg/dL (200-370)
--- NOTE | 2017-04-02 10:30 | NUR ---
PT SITTING ON CHAIR AT BEDSIDE USING HER CELL PHONE, CALL LIGHT WITHIN REACH.
[2017-04-02 11:53] LABS: ANION GAP 14.2 (8-16); CARBON DIOXIDE 25.8 mmol/L (21-32); CREATININE 0.9 mg/dL (0.6-1.3)
[2017-04-02 11:57] LABS: MAGNESIUM 1.8 mg/dL (1.8-2.4); PHOSPHORUS 1.8 mg/dL (2.5-4.9)
[2017-04-02 12:00] VITALS: BP 105/66
--- NOTE | 2017-04-02 12:15 | NUR ---
PT IS RESTING IN BED, NO S/S OF RESPIRATORY DISTRESS OR DISCOMFORT NOTED, CALL LIGHT WITHIN REACH.
[2017-04-02 12:40] LABS: WHITE BLOOD COUNT (AUTO) 2.9 K/uL (4.8-10.8)
[2017-04-02 12:41] LABS: HEMOGLOBIN 7.2 g/dL (12.0-16.0)
[2017-04-02 12:43] LABS: HEMATOCRIT 20.8 % (36-48); MEAN CORPUSCULAR HEMOGLOBIN 30 pg (27-31); MEAN CORPUSCULAR HGB CONC 34 g/dL (33-37); MEAN CORPUSCULAR VOLUME 87 fL (80-94); RED CELL DISTRIBUTION WIDTH 13.4 % (11.6-13.7)
[2017-04-02 12:45] LABS: LYMPHOCYTES % (MANUAL) 72 % (20-46); MONOCYTES % (MANUAL) 5 % (5-12); PLATELET COUNT (AUTO) 12 K/uL (140-450)
--- NOTE | 2017-04-02 13:30 | NUR ---
PT MOVED ROOM, PT IS NOW ON NEUTROPENIC PRECAUTIONS.
--- NOTE | 2017-04-02 15:30 | NUR ---
PT IS SITTING ON CHAIR AT BEDSIDE, FAMILY MEMBER IS ALSO AT BEDSIDE AT THIS TIME.
[2017-04-02 16:00] VITALS: BP 119/73
[2017-04-02] MEDS ORDERED: FENOFIBRATE 48 MG TAB PO SCH (16:30)
[2017-04-02] MEDS: SODIUM PHOS / POTASSIUM PHOS 1 PKT PDR PO SCH (16:30)
--- NOTE | 2017-04-02 17:30 | NUR ---
PT IS AMBULATING AROUND THE ROBBINS ACCOMPANIED BY HER DAUGHTER.
--- NOTE | 2017-04-02 19:25 | NUR ---
ENDORSED PT TO ACADEMIC INTERN NURSE FOR CONTINUITY OF CARE. PT STABLE AT THIS TIME.
--- NOTE | 2017-04-02 19:26 | NUR ---
RECEIVED PT AWAKE ON BED, VITAL SIGNS STABLE, DENIES ANY PAIN, IVF INFUSING WELL, MAINTAIN ON NEUTROPENIC ISOLATION, PLAN OF CARE DISCUSS, CALL LIGHT WITHIN REACH.
[2017-04-02 20:00] VITALS: BP 114/67
--- NOTE | 2017-04-02 22:10 | NUR ---
DR FER BARAJAS HERE FOR OB CONSULT, SEEN PT, NO NEW ORDERS.
[2017-04-03] VITALS: BP 108/58
--- NOTE | 2017-04-03 | NUR ---
PT SLEEPING, EASILY AROUSABLE, VITAL SIGNS STABLE, DENIES ANY PAIN, IVF INFUSING WELL, APPLE SAUCE PROVIDED PER REQUEST, CONTINUE TO MONITOR CLOSELY.
[2017-04-03] MEDS: NACL 0.9% 1,000 ML IV SCH ×2 (03:09→07:15)
[2017-04-03 04:00] VITALS: BP 95/64
--- NOTE | 2017-04-03 04:00 | NUR ---
PT SLEEPING, EASILY AROUSABLE, VITAL SIGNS STABLE, SB ON TELE, HR-50'S, ASYMPTOMATIC, DENIES ANY PAIN, MONITORED CLOSELY.
[2017-04-03 06:16] LABS: T4 (THYROXINE) 7.3 ug/dL (4.5-12.0)
[2017-04-03 06:37] LABS: ANION GAP 14.4 (8-16); CARBON DIOXIDE 23.3 mmol/L (21-32); CREATININE 0.8 mg/dL (0.6-1.3); POTASSIUM 3.7 mmol/L (3.5-5.1)
[2017-04-03 06:47] LABS: MAGNESIUM 1.8 mg/dL (1.8-2.4); PHOSPHORUS 4.5 mg/dL (2.5-4.9)
[2017-04-03] MEDS: SODIUM PHOS / POTASSIUM PHOS 1 PKT PDR PO SCH ×2 (06:50→11:53)
--- NOTE | 2017-04-03 06:56 | NUR ---
PT SLEEPING, EASILY AROUSABLE, DUE PO MEDICATION ADMINISTERED WITH JUICE, TOLERATED WELL, DENIES ANY PAIN, IVF INFUSING WELL, MONITORED CLOSELY.
--- NOTE | 2017-04-03 07:30 | NUR ---
PT AWAKE, NO SIGNS OF DISTRESS, REPORT GIVEN TO ANA NG FOR CONTINUITY OF CARE.
--- NOTE | 2017-04-03 07:31 | NUR ---
RECEIVED PT REPORT AT BEDSIDE FROM BALL RACKER NURSE FOR CONTINUITY OF CARE. PT WAS AWAKE AND ORIENTED. INTRODUCED SELF TO PT AND UPDATED BOARD. IV L AC 18G NS AT 100ML/HR. IV LINE PATENT AND INTACT. VITAL SIGNS WNL. NO COMPLAINTS OF PAIN. PT ON RA. SKIN IS INTACT. PT HAS BREAKFAST AT BED. REGULAR DIET. WILL CONTINUE TO MONITOR PT.
--- NOTE | 2017-04-03 07:49 | NUR ---
SPOKE WITH SEVERO FROM ON 04/02. SHE SAID REVIEWS GO TO [facility]. FAXED INITIAL REVIEW TO [facility] [phone] PHONE [place] [phone]
[2017-04-03 07:56] LABS: RED BLOOD CELL COUNT(AUTO) 1.97 MIL/uL (4.20-5.40); WHITE BLOOD COUNT (AUTO) 2.9 K/uL (4.8-10.8)
--- NOTE | 2017-04-03 07:57 | NUR ---
LAB CALLED WITH CRITICAL RESULTS. HEMOGLOBIN/HEMATOCRIT 6.9/17.4. PLATELET 10. WILL NOTIFY
[2017-04-03 07:58] LABS: HEMATOCRIT 17.4 % (36-48); MEAN CORPUSCULAR HEMOGLOBIN 30 pg (27-31); MEAN CORPUSCULAR HGB CONC 34 g/dL (33-37); MEAN CORPUSCULAR VOLUME 88 fL (80-94); RED CELL DISTRIBUTION WIDTH 13.4 % (11.6-13.7)
[2017-04-03 08:02] LABS: PLATELET COUNT (AUTO) 10 K/uL (140-450)
[2017-04-03 08:04] VITALS: BP 114/68
[2017-04-03 08:04] LABS: LYMPHOCYTES % (MANUAL) 85 % (20-46); MONOCYTES % (MANUAL) 2 % (5-12)
--- NOTE | 2017-04-03 08:10 | NUR ---
ENDORSED PT TO ANA HOLLIDAY. PT IS IN STABLE CONDITION.
[2017-04-03] MEDS: FERROUS SULFATE 325 MG TABEC PO SCH (08:24)
[2017-04-03] MEDS: ASCORBIC ACID 500 MG TAB PO SCH (08:24)
[2017-04-03] MEDS: PANTOPRAZOLE 40 MG TABEC PO SCH (08:24)
[2017-04-03 08:56] LABS: FERRITIN 1211 ng/mL (15-150)
[2017-04-03] MEDS ORDERED: FENOFIBRATE 48 MG TAB PO SCH (09:00)
--- NOTE | 2017-04-03 09:00 | NUR ---
RECEIVED REPORT FROM HERNANDEZ. PT IS AWAKE, ALERT, AND ORIENTED. NO SIGNS OF RESTLESSNESS, SHORTNESS OF BREATH, OR DISCOMFORT. PT DENIES PAIN. RESP EVEN AND UNLABORED. IV IS INTACT, NO REDNESS OR SWELLING. SKIN IS WARM AND DRY. PT IN NEUTROPENIC PRECAUTION. PT EDUCATED. DISCUSSED PLAN OF CARE WITH PT. VERBALIZED UNDERSTANDING. SAFETY MEASURES IN PLACED. BED ON LOW POSITION. CALL LIGHT WITHIN REACH. WILL CONTINUE TO MONITOR.
[2017-04-03] MEDS ORDERED: TRI48 PO (10:45)
--- NOTE | 2017-04-03 11:07 | NUR ---
PT AMBULATING WITH STEADY GAIT. NO DIZZINESS, LIGHTHEADEDNESS, OR SHORTNESS OF BREATH. PT DENIES PAIN, OR DISCOMFORT.
[2017-04-03 13:15] VITALS: BP 112/75
--- NOTE | 2017-04-03 13:15 | NUR ---
DISCHARGED INSTRUCTION GIVEN AND EXPLAINED TO PT VIA TELEPHONE NAIL MAKER #[id number]. PT VERBALIZED FULL UNDERSTANDING. F/U APPT INFORMATION GIVEN. NEUTROPENIC INSTRUCTION GIVEN. IV DC'ED, CATHETER INTACT. NO BLEEDING NOTED. PT TOLERATED WELL. DENIES DISCOMFORT OR PIN. NO SIGNS OF DISTRESS, RESTLESSNESS OR SHORTNESS OF BREATH. VITAL SIGNS STABLE. DAUGHTER HERE TO TAKE HER HOME. PT AMBULATED WITH STEADY GAIT. ESCORTED OUT TO THE LOBBY.
[2017-04-03] MEDS ORDERED: METF500T PO (17:08)
== END 2017-04-03 13:15 | disposition home or self-care (01) | DRG 809 ==
LOC: MED 22:26 → MTU 23:58
PROVIDERS: ADMIT Family Medicine; ATTEND Family Medicine
PROC: 30233L1 Transfusion of Nonautologous Fresh Plasma into Peripheral Vein, Percutaneous Approach (ICD-10-PCS; principal; 2017-04-01)
PROC: 30233K1 Transfusion of Nonautologous Frozen Plasma into Peripheral Vein, Percutaneous Approach (ICD-10-PCS; 2017-04-01)
PROC: 30233N1 Transfusion of Nonautologous Red Blood Cells into Peripheral Vein, Percutaneous Approach (ICD-10-PCS; 2017-04-01)
PROC: 30233R1 Transfusion of Nonautologous Platelets into Peripheral Vein, Percutaneous Approach (ICD-10-PCS; 2017-04-01)
DX: D61.818 Other pancytopenia (principal); D69.3 Immune thrombocytopenic purpura; D68.59 Other primary thrombophilia; E11.51 Type 2 diabetes mellitus with diabetic peripheral angiopathy without gangrene; E11.65 Type 2 diabetes mellitus with hyperglycemia; D46.9 Myelodysplastic syndrome, unspecified; E87.8 Other disorders of electrolyte and fluid balance, not elsewhere classified; E83.39 Other disorders of phosphorus metabolism; E87.6 Hypokalemia; N85.00 Endometrial hyperplasia, unspecified; E78.1 Pure hyperglyceridemia; R31.9 Hematuria, unspecified; E53.8 Deficiency of other specified B group vitamins
CPT/HCPCS: 36415; 36600; 71010; 76770; 76830; 80048; 80053; 80305; 81001; 81025; 82150; 82607; 82728; 82746; 82803; 83036; 83540; 83690; 83735; 83880; 84100; 84436; 84439; 84443; 84479; 84484; 85025; 85045; 85610; 85730; 86886; 86900; 86901; 86920; 87081; 87086; 93005; 99285; J7030; J7512; P9016; P9017; P9035; Q0092; Q9967

== ENCOUNTER 2017-05-07 20:27 | Emergency (ER) | payer OTHER ==
[~2017-05-07] VITALS: Ht 142.2 cm; Wt 59.4 kg
[~2017-05-07 20:27] MED LIST changes: -ASCO-166 PO; +ASCO500T93 PO; +DOCU-299 PO; -DOCU-67 PO; +TRI48 PO
[2017-05-07 20:42] VITALS: BP 115/79
--- NOTE | 2017-05-07 22:12 | NUR ---
PATIENT LEFT WITHOUT BEING SEEN BY DR. GANDHI. NO FURTHER CARE PROVIDED FOR PATIENT.
== END 2017-05-07 22:12 | disposition left against medical advice (07) ==
LOC: MED 20:27
DX: R91.8 Other nonspecific abnormal finding of lung field (principal); Z53.21 Procedure and treatment not carried out due to patient leaving prior to being seen by health care provider

== ENCOUNTER 2017-05-07 22:25 | Emergency (ER) | payer OTHER ==
[~2017-05-07] VITALS: Ht 142.2 cm; Wt 59.1 kg
[2017-05-07 22:39] VITALS: BP 115/55
[2017-05-07 23:36] LABS: EOSINOPHILS % (AUTO) 0.1 % (0.0-4.0); LYMPHOCYTES # (AUTO) 2.4 K/uL (2.5-16.5); MEAN CORPUSCULAR HEMOGLOBIN 29 pg (27-31); MEAN CORPUSCULAR HGB CONC 34 g/dL (33-37); MEAN CORPUSCULAR VOLUME 86 fL (80-94); MONOCYTES # (AUTO) 0.1 K/uL (0.8-1.0); MONOCYTES % (AUTO) 2.5 % (1.7-9.3); NEUTROPHILS # (AUTO) 0.2 K/uL (1.8-7.7); NEUTROPHILS % (AUTO) 5.8 % (42.2-75.2); RED BLOOD CELL COUNT(AUTO) 1.58 MIL/uL (4.20-5.40); RED CELL DISTRIBUTION WIDTH 11.7 % (11.6-13.7); WHITE BLOOD COUNT (AUTO) 2.7 K/uL (4.8-10.8)
[2017-05-07 23:47] LABS: ANION GAP 13.1 (8-16); CARBON DIOXIDE 26.1 mmol/L (21-32); CREATININE 0.6 mg/dL (0.6-1.3); POTASSIUM 4.2 mmol/L (3.5-5.1)
[2017-05-08 00:02] LABS: THYROID STIMULATING HORMONE 1.32 uIU/mL (0.34-3.74)
[2017-05-08 00:21] LABS: HEMOGLOBIN 4.6 g/dL (12.0-16.0)
[2017-05-08 00:22] LABS: HEMATOCRIT 13.5 % (36-48); PLATELET COUNT (AUTO) 4 K/uL (140-450)
[2017-05-08 00:23] LABS: LYMPHOCYTES % (AUTO) 90.6 % (20.5-51.1)
--- NOTE | 2017-05-08 00:39 | NUR ---
AMBULATED TO ER BED 7
--- NOTE | 2017-05-08 00:48 | NUR ---
Patient being evaluated by physician at bedside.
--- NOTE | 2017-05-08 01:05 | NUR ---
46Y/F PT. PRESENTS TO ED WITH C/O VAGINAL BLEEDING. HX. PANCYTOPENIA. DENIES N/V/D; SKIN IS PINK/WARM/DRY; AAOX4 WITH EVEN AND STEADY GAIT; LUNGS CLEAR BL; HR EVEN AND REGULAR; PT DENIES ANY FEVER, CP, SOB, OR COUGH AT THIS TIME; PATIENT STATES PAIN OF 0/10 AT THIS TIME; VSS; PATIENT POSITIONED FOR COMFORT; HOB ELEVATED; BEDRAILS UP X2; BED DOWN. ER MD MADE AWARE OF PT STATUS.
--- NOTE | 2017-05-08 01:20 | NUR ---
Patient discharged with v/s stable. Written and verbal after care instructions given and explained. Patient verbalized understanding. Ambulatory with steady gait. All questions addressed prior to discharge. Advised to follow up with PMD.
[2017-05-08 01:25] VITALS: BP 115/74
== END 2017-05-08 01:20 | disposition home or self-care (01) ==
LOC: MED 22:25
DX: D61.818 Other pancytopenia (principal); N93.8 Other specified abnormal uterine and vaginal bleeding
CPT/HCPCS: 36415; 76830; 80048; 81002; 81025; 84439; 84443; 85025; 85610; 99285